=== PATIENT | male | born 1990 | race Two or more races ===

== ENCOUNTER 2020-05-04 03:38 | Emergency (ER) | payer SELFPAY ==
[2020-05-04] MEDS ORDERED: Sodium Chloride 0.9% 1,000 ML IV ONE (03:43)
[2020-05-04] MEDS ORDERED: Sodium Chloride 0.9% 10 ML Syringe FLUSH PRN (03:46)
[2020-05-04] MEDS ORDERED: Iopamidol 612 MG/ML 100 ML Bottle IVPUSH ONE ×2 (03:46→04:44)
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
[2020-05-04] MEDS ORDERED: Propofol 200 MG/20 ML SDV ONE ×2 (06:01→06:03)
[2020-05-04] MEDS ORDERED: fentaNYL 100 MCG/2 ML SDV ONE (06:01)
[2020-05-04] MEDS ORDERED: Midazolam 1 MG/ML 2 ML SDV ONE (06:01)
--- NOTE | 2020-05-04 06:32 | PCM.PREANE ---
Preanesthetic Assessment - Procedure Proposed Procedure: CR right hip - Anesthesia/Transfusion/Family Hx Anesthesia History: Prior Anesthesia Without Reaction Family History of Anesthesia Reaction: No Transfusion History: No Prior Transfusion(s) - Review of Systems General: Malaise Pulmonary: No Symptoms Cardiovascular: No Symptoms Gastrointestinal: No Symptoms Neurological: Other (hip pain) Other: Reports: None - Physical Assessment Vital Signs: Last Vital Signs Temp 36.9 C 05/04/20 04:38 Pulse 113 H 05/04/20 04:38 Resp 22 H 05/04/20 04:38 BP 135/40 L 05/04/20 04:38 Pulse Ox 97 05/04/20 04:38 Height: 1.88 m Weight: 117.934 kg ASA Class: 2E Mental Status: Alert & Oriented x3 Airway Class: Mallampati = 2 Dentition: Reports: Normal Dentition Thyro-Mental Finger Breadths: 2 Mouth Opening Finger Breadths: 2 ROM/Head Extension: Limited/Partial (c coller) Lungs: Clear to Auscultation, Normal Respiratory Effort Cardiovascular: Regular Rate, Regular Rhythm, Tachycardia - Lab Values: Laboratory Last Values WBC 11.09 K/mm3 (4.23-9.07) H 05/04/20 03:45 RBC 5.09 M/mm3 (4.63-6.08) 05/04/20 03:45 Hgb 14.6 gm/dl (13.7-17.5) 05/04/20 03:45 Hct 41.7 % (40.1-51.0) 05/04/20 03:45 MCV 81.9 fl (79.0-92.2) 05/04/20 03:45 MCH 28.7 pg (25.7-32.2) 05/04/20 03:45 MCHC 35.0 g/dl (32.2-35.5) 05/04/20 03:45 RDW Std Deviation 38.7 fL (35.1-43.9) 05/04/20 03:45 Plt Count 257 K/mm3 (163-337) 05/04/20 03:45 MPV 9.1 fl (9.4-12.3) L 05/04/20 03:45 Neutrophils % (Manual) 61 % (40-60) H 05/04/20 03:45 Band Neutrophils % 0 % (0-10) 05/04/20 03:45 Lymphocytes % (Manual) 37 % (20-40) 05/04/20 03:45 Atypical Lymphs % 0 % 05/04/20 03:45 Monocytes % (Manual) 0 % (2-10) L 05/04/20 03:45 Eosinophils % (Manual) 1 % (0.8-7.0) 05/04/20 03:45 Basophils % (Manual) 1 (0.2-1.2) 05/04/20 03:45 Platelet Estimate Adequate 05/04/20 03:45 Plt Morphology Comment Normal 05/04/20 03:45 RBC Morph Comment Normal 05/04/20 03:45 PT 10.2 SECONDS (9.7-12.0) 05/04/20 03:45 INR 0.93 05/04/20 03:45 APTT 22 SECONDS (22-31) 05/04/20 03:45 Sodium 144 mEq/L (136-145) 05/04/20 03:45 Potassium 3.8 mEq/L (3.5-5.1) 05/04/20 03:45 Chloride 108 mEq/L (98-107) H 05/04/20 03:45 Carbon Dioxide 20 mEq/L (21-32) L 05/04/20 03:45 Anion Gap 19.8 (5-15) H 05/04/20 03:45 BUN 15 mg/dL (7-18) 05/04/20 03:45 Creatinine 1.1 mg/dL (0.7-1.3) 05/04/20 03:45 Est Cr Clr Drug Dosing 116.24 mL/min 05/04/20 03:45 Estimated GFR (MDRD) > 60 mL/min (>60) 05/04/20 03:45 BUN/Creatinine Ratio 13.6 (14-18) L 05/04/20 03:45 Glucose 145 mg/dL (74-106) H 05/04/20 03:45 Calcium 8.5 mg/dL (8.5-10.1) 05/04/20 03:45 Total Bilirubin 0.4 mg/dL (0.2-1.0) 05/04/20 03:45 AST 39 U/L (15-37) H 05/04/20 03:45 ALT 61 U/L (16-63) 05/04/20 03:45 Alkaline Phosphatase 80 U/L (46-116) 05/04/20 03:45 Total Protein 7.5 g/dl (6.4-8.2) 05/04/20 03:45 Albumin 4.1 g/dl (3.4-5.0) 05/04/20 03:45 Globulin 3.4 gm/dL 05/04/20 03:45 Albumin/Globulin Ratio 1.2 (1-2) 05/04/20 03:45 Ethyl Alcohol 0.24 gm% (0.00) 05/04/20 03:45 - Allergies Allergies/Adverse Reactions: Allergies Allergy/AdvReac Type Severity Reaction Status Date / Time No Known Allergies Allergy Verified 05/04/20 03:51 - Blood Blood Available: No Product(s) Available: None - Anesthesia Plan Pre-Op Medication Ordered: None - Acknowledgements Anesthesia Type Planned: MAC Pt an Appropriate Candidate for the Planned Anesthesia: Yes Alternatives and Risks of Anesthesia Discussed w Pt/Guardian: Yes Pt/Guardian Understands and Agrees with Anesthesia Plan: Yes PreAnesthesia Questionnaire - Past Health History Medical/Surgical History: Denies Medical/Surgical History HEENT History: Reports: Glaucoma (left eye only, untreated) - SUBSTANCE USE Smoking Status *Q: Light Tobacco Smoker Tobacco Use Within Last Twelve Months: Cigarettes - HOME MEDS Home Medications: Home Meds . [No Known Home Meds] 05/04/20 [History] - CURRENT (IN HOUSE) MEDS Current Meds: Current Medications Sodium Chloride (Normal Saline) 1,000 mls @ 100 mls/hr IV ONETIME ONE Stop: 05/04/20 13:42 Last Admin: 05/04/20 05:37 Dose: 100 mls/hr Documented by: Sodium Chloride (Saline Flush) 10 ml FLUSH ONETIME PRN PRN Reason: Keep Vein Open Last Admin: 05/04/20 04:44 Dose: 10 ml Documented by: Discontinued Medications Fentanyl (Sublimaze) Confirm Administered Dose 100 mcg .ROUTE .STK-MED ONE Stop: 05/04/20 06:02 Iopamidol (Isovue-300 (61%)) 100 ml IVPUSH ONETIME ONE Stop: 05/04/20 03:47 Last Admin: 05/04/20 04:44 Dose: 100 ml Documented by: Iopamidol (Isovue-300 (61%)) 100 ml IVPUSH ONETIME ONE Stop: 05/04/20 04:45 Last Admin: 05/04/20 04:44 Dose: 100 ml Documented by: Midazolam HCl (Versed 1 Mg/Ml) Confirm Administered Dose 2 mg .ROUTE .STK-MED ONE Stop: 05/04/20 06:02 Propofol (Diprivan 20 Ml) Confirm Administered Dose 200 mg .ROUTE .STK-MED ONE Stop: 05/04/20 06:02 Propofol (Diprivan 20 Ml) Confirm Administered Dose 200 mg .ROUTE .STK-MED ONE Stop: 05/04/20 06:04
--- NOTE | 2020-05-05 09:03 | CT ---
CT cervical spine Technique: Multiple axial sections were obtained from above C1 inferiorly to the top of T2. Reconstructed sagittal and coronal images were reviewed. Comparison: No previous cervical spine imaging is available. Findings: Diffuse motion artifact is present. Mild disc space narrowing is noted at C4-5. Slight anterior osteophytes are seen at C4-5 and C5-6. Posterior osteophytes are noted at C5-6. No fracture is identified. No bony central or bony neural foraminal stenosis is appreciated. Impression: 1. Motion artifact. Within this limitation, no definite abnormality is appreciated. Note: If patient remains symptomatic, repeat study done recommended. Diagnostic code #2 This report was dictated in MDT I agree with preliminary report from [email or web address], finalized on 05/04/20, 6:12 AM Central Daylight Time
--- NOTE | 2020-05-05 09:04 | CT ---
Head CT Technique: Multiple axial sections through the brain were obtained. Intravenous contrast was not utilized. Richard: No prior intracranial imaging is available. Findings: Motion artifact is seen diminishing details. Within the limitations of motion, ventricles along with basal cisterns and sulci over the convexities appear within normal limits. No gross findings of abnormal parenchymal densities. No gross findings of intracranial hemorrhage. No midline shift or mass-effect is appreciated. Visualized paranasal sinuses and mastoid sinuses show nothing acute. Soft tissue swelling is noted to the right side of the scalp as well as scalp injury to the upper left scalp with soft tissue swelling. No acute calvarial finding is definitely appreciated. Impression: 1. Scalp injury. 2. Significant motion artifact diminishing details. 3. No gross intracranial abnormality is appreciated. Diagnostic code #3 This report was dictated in MDT I agree with preliminary report from [facility], finalized on 05/04/20, 6:08 AM [place] Daylight Time
--- NOTE | 2020-05-05 09:04 | CR ---
Right hip: 2 views of the right hip were obtained. Previous dislocation has been reduced. Fracture is seen within the posterior lip of the superior acetabulum. No additional abnormality is appreciated. Impression: 1. Relocation of previous dislocation. 2. Posterior lip fracture within the superior acetabulum. Diagnostic code #3 This report was dictated in MDT
--- NOTE | 2020-05-05 09:05 | CT ---
CT chest Technique: Multiple axial sections were obtained from above the lung apices inferiorly through the lung bases. Intravenous contrast was utilized. Comparison: No prior chest imaging is available. Findings: Mediastinum and hilar region show no adenopathy. No pericardial thickening is seen. No axillary adenopathy is noted. Lungs are clear. No acute parenchymal change is seen. Bone window settings were reviewed which show no acute osseous finding. Impression: 1. Nothing acute is appreciated on CT study of the chest. Diagnostic code #1 This report was dictated in MDT I agree with preliminary report from [facility], finalized on 05/04/20, 6:[address] CT abdomen and pelvis Technique: Multiple axial sections were obtained from above the dome of the diaphragm inferiorly through the pubic symphysis. Intravenous contrast was utilized. No oral contrast has been given. Comparison: No prior abdominal imaging is available. Findings: Liver contains no focal parenchymal abnormality. Spleen appears normal. Adrenal glands show no nodule. Pancreas shows no abnormality. Gallbladder contains no calcified gallstones. Kidneys shows a small low density finding within the mid left kidney which does not have Hounsfield unit measurements of a cyst. This is otherwise nonspecific. This finding measures 1.1 cm in size. Appendix is seen which is normal. Aorta shows no aneurysm. Contrast noted within the ureters and bladder. No pelvic mass or adenopathy is seen. No free fluid or inflammatory change is seen. Right hip is dislocated posteriorly. Fracture noted off the posterior lip of the right acetabulum with displaced fragments. No additional acute osseous finding is seen. There is an old ununited fracture on both sides involving the transverse process of L1. Impression: 1. Posterior dislocation of the right hip with fractures seen within the posterior lip of the right acetabulum. 2. Small lesion within the mid right kidney which is nonspecific but most likely is incidental given the patient's age. 3. No other acute findings are seen on CT study of the abdomen and pelvis. Diagnostic code #3 This report was dictated in MDT I agree with preliminary report from [facility], finalized on 05/04/20, 6:03 AM [place] Daylight Time
== END 2020-05-04 07:52 ==
LOC: JD.ED 03:38
DX: S32.401A Unspecified fracture of right acetabulum, initial encounter for closed fracture (principal); S01.01XA Laceration without foreign body of scalp, initial encounter; F17.200 Nicotine dependence, unspecified, uncomplicated; I10 Essential (primary) hypertension; F10.129 Alcohol abuse with intoxication, unspecified; Y90.8 Blood alcohol level of 240 mg/100 ml or more; V58.5XXA Driver of pick-up truck or van injured in noncollision transport accident in traffic accident, initial encounter; Z20.828 Contact with and (suspected) exposure to other viral communicable diseases; Y92.410 Unspecified street and highway as the place of occurrence of the external cause
CPT/HCPCS: 12004; 36415; 51702; 70450; 71260; 72125; 73501; 74177; 80053; 80306; 80307; 81001; 85007; 85027; 85610; 85730; 87635; 96360; 96361; 99285; J2250; J2704; J3010; J7030; Q9967; 01200; 27252; U0002